=== PATIENT | female | born 1960 | race African-American/Black ===

== ENCOUNTER 2022-08-28 09:21 | Inpatient (IN) | payer BC, OTHER ==
[~2022-08-28] VITALS: Ht 165.1 cm; Wt 64.5 kg
[2022-08-28] MEDS ORDERED: METOPROLOL TARTRATE 5MG/5ML VIAL IV NR (11:00)
[2022-08-28 11:02] LABS: BASOPHILS % 1.2 % (0.0-2.0); EOSINOPHILS % 1.1 % (0.0-5.0); HEMATOCRIT. 42.6 % (36.0-48.0); LYMPHOCYTES % 39.7 % (20.0-50.0); MEAN CORPUSCULAR HEMOGLOBIN 29.3 pg (28.0-32.0); MEAN CORPUSCULAR VOLUME 89.3 fL (81.0-99.0); MEAN PLATELET VOLUME 10.2 fl (7.4-10.4); MONOCYTES % 9.3 % (2.0-8.0); NEUTROPHILS % 48.7 % (40.0-76.0); PLATELET 226 x1000/uL (130-400); RED BLOOD CELL COUNT 4.77 mill/uL (4.2-5.4); RED CELL DISTRIBUTION WIDTH 14.1 % (11.6-14.6)
[2022-08-28 11:17] LABS: CHLORIDE 110 mEq/L (98-107)
[2022-08-28] MEDS ORDERED: SODIUM BICARBONATE 8.4% 1 MEQ/ML 50ML SYR IV NR (12:00)
[2022-08-28] MEDS ORDERED: FUROSEMIDE 100MG/10ML VIAL IV NR (12:00)
[2022-08-28] MEDS ORDERED: ALBUTEROL (0.083%) 2.5MG/3ML NEB HHN SCH (12:00)
[2022-08-28] MEDS ORDERED: DEXTROSE 50% WATER 50ML SYRINGE IV NR (12:00)
[2022-08-28] MEDS ORDERED: SODIUM POLYSTYRENE SULFONATE 15 G/60 ML BOT PO NR ×2 (12:00→17:15)
[2022-08-28] MEDS ORDERED: CALCIUM GLUCONATE 1,000 MG in DEXT 5% WATER 100 ML IV ONE (12:00)
[2022-08-28] MEDS ORDERED: INSULIN REGULAR (HUMULIN R) 300UNITS/3ML VIAL IV NR (12:00)
[2022-08-28] MEDS: CALCIUM GLUCONATE 1GM PREMIX 50 ML IV NR ×2 (12:51→12:52)
[2022-08-28] MEDS ORDERED: METOPROLOL TARTRATE 5MG/5ML VIAL IV ONE (14:00)
[2022-08-28] MEDS ORDERED: DILTIAZEM HCL 30MG TABLET PO NR (15:00)
[2022-08-28] MEDS ORDERED: DOCUSATE SODIUM 100MG CAPSULE PO PRN (17:15)
[2022-08-28] MEDS ORDERED: TRAMADOL 50MG TABLET PO PRN (17:15)
[2022-08-28] MEDS ORDERED: ACETAMINOPHEN 325MG TABLET PO PRN (17:15)
[2022-08-28] MEDS ORDERED: ONDANSETRON HCL 4MG/2ML INJ IV PRN (17:15)
[2022-08-28] MEDS ORDERED: GUAIFENESIN 200MG/10ML SUGAR FREE UDC PO PRN (17:15)
[2022-08-28 17:30] VITALS: BP 115/73
[2022-08-28] MEDS: APIXABAN 5 MG TABLET PO SCH (18:35)
[2022-08-28] MEDS ORDERED: LISI20TA31 MT (18:45)
[2022-08-28] MEDS ORDERED: METO-385 MT (18:45)
[2022-08-28] MEDS ORDERED: AMLO5TAB88 MT (18:46)
[2022-08-28 20:00] VITALS: BP 139/78
[2022-08-28 21:40] LABS: CHLORIDE 108 mEq/L (98-107)
[2022-08-28 22:30] LABS: HEPATITIS B SURFACE ANTIGEN NEGATIVE
[2022-08-29] VITALS: BP 114/71
[2022-08-29 04:00] VITALS: BP 103/66
[2022-08-29 06:33] LABS: BASOPHILS % 0.8 % (0.0-2.0); HEMATOCRIT. 37.5 % (36.0-48.0); HEMOGLOBIN. 12.4 g/dL (12.0-16.0); LYMPHOCYTES % 44.8 % (20.0-50.0); MEAN CORPUSCULAR HEMOGLOBIN 29.3 pg (28.0-32.0); MEAN CORPUSCULAR VOLUME 88.2 fL (81.0-99.0); MEAN PLATELET VOLUME 10.2 fl (7.4-10.4); MONOCYTES % 10.4 % (2.0-8.0); PLATELET 203 x1000/uL (130-400); RED BLOOD CELL COUNT 4.25 mill/uL (4.2-5.4); RED CELL DISTRIBUTION WIDTH 14.4 % (11.6-14.6)
[2022-08-29 07:28] LABS: CHLORIDE 109 mEq/L (98-107)
[2022-08-29 07:35] LABS: HDL CHOLESTEROL 46 mg/dL (40-59); LDL CHOLESTEROL 111 mg/dL (5-100)
[2022-08-29 08:06] VITALS: BP 120/66
[2022-08-29] MEDS: APIXABAN 5 MG TABLET PO SCH (09:15)
[2022-08-29 12:14] VITALS: BP 120/70
[2022-08-29 12:28] VITALS: BP 120/70
[2022-08-29] MEDS ORDERED: ATORVASTATIN CALCIUM 20MG TABLET PO SCH (21:00)
== END 2022-08-29 13:53 | disposition home or self-care (01) | DRG 309 ==
LOC: ER 09:21 → 7WST 13:48 → EDBEDREQ 13:52
PROVIDERS: ADMIT Hospitalist; ATTEND Hospitalist
DX: I48.0 Paroxysmal atrial fibrillation (principal); D68.59 Other primary thrombophilia; I16.0 Hypertensive urgency; I10 Essential (primary) hypertension; E87.5 Hyperkalemia; Z82.49 Family history of ischemic heart disease and other diseases of the circulatory system
CPT/HCPCS: 36415; 71045; 80048; 80053; 80061; 83880; 84484; 85025; 86803; 87340; 93005; 93970; 99285; J0610; J1940; J3490